=== PATIENT | male | born 1960 | race Caucasian/White ===

== ENCOUNTER 2019-11-19 09:17 | Inpatient (IN) ==
[~2019-11-19 09:17] MED LIST: Vancomycin 1,000 MG, Sodium Chloride IRRigation 1,000 ML IR ONE
[2019-11-19] MEDS ORDERED: Ringers Solution, Lactated 1,000 ML IVC SCH (09:45)
[2019-11-19] MEDS ORDERED: CeFAZolin Syr 2,000MG/20 ML 2,000 MG/20 ML SYRINGE IVPB ONE (10:02)
[2019-11-19] MEDS ORDERED: *HR* Midazolam HCl 2 MG/2 ML VIAL ONE (10:03)
[2019-11-19] MEDS ORDERED: *HR* Propofol 200 MG/20 ML VIAL IVP ONE (10:03)
[2019-11-19] MEDS ORDERED: *HR* FentaNYL (PF) 100 MCG/2 ML VIAL ONE ×3 (10:03→12:54)
[2019-11-19] MEDS ORDERED: Lidocaine -MPF 2% 2 ML VIAL ONE (10:20)
[2019-11-19] MEDS ORDERED: Ondansetron 4 MG/2 ML VIAL ONE (10:20)
[2019-11-19] MEDS ORDERED: *HR* Rocuronium Bromide 50 MG/5 ML VIAL ONE ×2 (10:20→13:19)
[2019-11-19] MEDS ORDERED: *HR* Phenylephrine 10 MG/ML VIAL ONE (10:20)
[2019-11-19] MEDS ORDERED: Lidocaine HCL 4 ML Topical Solution (Laryng-O-Jet Kit Sterile Pak) TP ONE (10:20)
[2019-11-19] MEDS ORDERED: *HR* Heparin 5,000 UNIT/ML VIAL ONE ×2 (10:22→14:34)
[2019-11-19] MEDS ORDERED: Acetaminophen IV 1,000 MG/100 ML INFUS..BTL IVPB ONE (10:26)
[2019-11-19] MEDS ORDERED: Ondansetron 4 MG/2 ML VIAL IVP ONE (10:27)
[2019-11-19] MEDS ORDERED: *HR* OxyCODONE Immed Rel 5 MG TABLET PO PRN ×3 (10:27→17:07)
[2019-11-19] MEDS ORDERED: Aspirin 81 MG TAB.CHEW PO ONE (10:27)
[2019-11-19] MEDS ORDERED: *HR* HYDROmorphone PF 0.5 MG/0.5 ML SYRINGE IVP PRN (10:27)
[2019-11-19] MEDS ORDERED: *HR* Promethazine 25 MG/ML VIAL IVP PRN (10:27)
[2019-11-19] MEDS ORDERED: *HR* Labetalol 20 MG/4 ML SYRINGE IVP PRN ×2 (10:27→17:07)
[2019-11-19] MEDS ORDERED: Heparin 1,000 UNITS/500 mL 500 ML ONE (11:56)
[2019-11-19] MEDS ORDERED: Isovue-300 150 ML INFUS..BTL ONE (11:57)
[2019-11-19] MEDS ORDERED: Dexamethasone 4 MG/ML VIAL ONE (13:51)
[2019-11-19] MEDS ORDERED: 0.9 % Sodium Chloride 1,000 ML IVC SCH (17:07)
[2019-11-19] MEDS ORDERED: Ondansetron 4 MG/2 ML VIAL IVP PRN (17:07)
[2019-11-19] MEDS ORDERED: *HR* HYDROcodone/Acet 5/325 mg TABLET PO PRN ×2 (17:07)
[2019-11-19] MEDS ORDERED: Acetaminophen 325 MG TABLET PO PRN ×2 (17:07)
[2019-11-19] MEDS ORDERED: Naloxone 0.4 MG/ML INJ IVP PRN (17:07)
[2019-11-19] MEDS: *HR* Metoprolol 5 MG/5 ML VIAL IVP SCH ×2 (17:49→17:50)
[2019-11-19] MEDS ORDERED: amLODIPine 5 MG TABLET PO SCH (18:00)
[2019-11-19] MEDS: CeFAZolin 2 GM/120 ML BAG IVPB SCH (18:31)
[2019-11-20] MEDS: CeFAZolin 2 GM/120 ML BAG IVPB SCH (02:21)
[2019-11-20] MEDS: *HR* Metoprolol 5 MG/5 ML VIAL IVP SCH ×2 (05:18→12:31)
[2019-11-20 05:25] LABS: Basophils % 0.1 %; Hematocrit 46.9 % (37.5-50.1); Hemoglobin 15.6 g/dL (12.9-16.9); Immature Granulocytes % 0.4 % (0-4); Lymphocytes # 0.8 K/mcL (0.6-4.6); Lymphocytes % 8.8 %; Mean Corpuscular HGB Conc 33.3 g/dL (31.6-35.5); Mean Corpuscular Hemoglobin 30.6 pg (28.0-33.3); Mean Platelet Volume 10.9 fL (9.4-12.4); Monocytes # 0.5 K/mcL (0.0-1.3); Monocytes % 4.7 %; Neutrophils # 8.3 K/mcL (1.6-8.9); Platelet Count 159 K/mcL (140-400); Red Cell Distribution Width 12.7 % (11.5-14.5); White Blood Count 9.6 K/mcL (4.3-11.1)
[2019-11-20 05:43] LABS: BUN/Creatinine Ratio 14 (6-26); Blood Urea Nitrogen 9 mg/dL (8-23); Calcium 8.8 mg/dL (8.6-10.3); Carbon Dioxide 25 mEq/L (23-29); Chloride 106 mEq/L (98-107); Glucose 131 mg/dL (70-105); Osmolality,Calculated 280 (280-300); Potassium 4.2 mEq/L (3.5-5.1); Sodium 135 mEq/L (136-145); eGFR For African Americans > 60 (> 60); eGFR For Non-African Americans > 60 (> 60)
[2019-11-20] MEDS ORDERED: *HR* Heparin 5,000 UNIT/ML VIAL SQ SCH ×2 (06:00)
[2019-11-20 07:17] VITALS: BP 149/78
[2019-11-20] MEDS ORDERED: lisinopriL 20 MG TABLET PO SCH (09:00)
== END 2019-11-20 12:51 | disposition home or self-care (01) | DRG 169 ==
LOC: SAMDAY 09:17 → 2NNU 12:01
PROVIDERS: ADMIT Surgery; ATTEND Surgery

== ENCOUNTER 2020-01-28 12:59 | Inpatient (IN) ==
[2020-01-28 18:17] LABS: Adenovirus Not Detected (Not Detect); Bordetella Pertussis Not Detected (Not Detect); Chlamydophila pneumoniae Not Detected (Not Detect); Coronavirus 229E Not Detected (Not Detect); Coronavirus HKU1 Not Detected (Not Detect); Coronavirus NL63 Not Detected (Not Detect); Coronavirus OC43 Not Detected (Not Detect); Human Metapneumovirus Not Detected (Not Detect); Human Rhinovirus/Enterovirus Not Detected (Not Detect); Influenza A Subtype 2009 H1 Not Detected (Not Detect); Influenza B Not Detected (Not Detect); Mycoplasma pneumoniae Not Detected (Not Detect); Parainfluenza Virus 1 Not Detected (Not Detect); Parainfluenza Virus 2 Not Detected (Not Detect); Parainfluenza Virus 3 Not Detected (Not Detect); Parainfluenza Virus 4 Not Detected (Not Detect); Respiratory Syncytial Virus Not Detected (Not Detect)
[2020-01-28] MEDS ORDERED: *HR* FentaNYL (PF) 100 MCG/2 ML VIAL ONE (18:56)
[2020-01-28] MEDS ORDERED: *HR* Propofol 200 MG/20 ML VIAL IVP ONE (18:57)
[2020-01-28] MEDS ORDERED: *HR* Midazolam HCl 2 MG/2 ML VIAL ONE (18:57)
[2020-01-28] MEDS ORDERED: Dexamethasone 4 MG/ML VIAL ONE (19:00)
[2020-01-28] MEDS ORDERED: Ondansetron 4 MG/2 ML VIAL ONE (19:00)
[2020-01-28] MEDS ORDERED: Lidocaine -MPF 2% 2 ML VIAL ONE (19:00)
[2020-01-28] MEDS ORDERED: *HR* Succinylcholine 200 MG/10 ML VIAL IVP ONE (19:00)
[2020-01-28] MEDS ORDERED: Ondansetron 4 MG/2 ML VIAL IVP PRN ×2 (19:42→22:41)
[2020-01-28] MEDS ORDERED: Naloxone 0.4 MG/ML INJ IVP PRN ×2 (19:42→22:41)
[2020-01-28] MEDS ORDERED: 0.9 % Sodium Chloride 1,000 ML IVC SCH (20:00)
[2020-01-28] MEDS ORDERED: Bupivacaine/EPI 1:200k 0.25%PF 30 ML VIAL ONE (20:03)
[2020-01-28] MEDS ORDERED: Acetaminophen IV 1,000 MG/100 ML INFUS..BTL ONE (20:06)
[2020-01-28] MEDS ORDERED: Famotidine 20 MG/2 ML VIAL ONE (20:07)
[2020-01-28] MEDS ORDERED: Ketorolac 30 MG/ML VIAL ONE (21:04)
[2020-01-28] MEDS ORDERED: *HR* HYDROMORPHONE 2 MG/ML VIAL ONE (21:19)
[2020-01-28] MEDS ORDERED: Neostigmine Methylsulfate 3 MG/3 ML SYRINGE ONE (21:27)
[2020-01-29] MEDS ORDERED: Piperacillin/Tazobactam 3.375 GM in 0.9 % Sodium Chloride Mini Bag 100 ML IVPB SCH
[2020-01-29] MEDS: *HR* Heparin 5,000 UNIT/ML VIAL SQ SCH ×5 (00:21→21:14)
[2020-01-29] MEDS: 0.9 % Sodium Chloride 1,000 ML IVC SCH ×3 (00:30→17:20)
[2020-01-29] MEDS: Piperacillin/Tazobactam 3.375 GM in 0.9 % Sodium Chloride Mini Bag 100 ML IVPB SCH ×4 (00:30→21:14)
[2020-01-29] MEDS: Acetaminophen IV 1,000 MG/100 ML INFUS..BTL IVPB SCH ×3 (00:31→12:22)
[2020-01-29] MEDS ORDERED: *HR* LORazepam 2 MG/ML VIAL IVP PRN ×3 (01:56)
[2020-01-29] MEDS: Thiamine (B-1) 100 MG, Folic Acid 1 MG, MVI, adult with vitamin K 10 ML in 0.9 % Sodi... IVPB SCH ×2 (03:59→17:19)
[2020-01-29 05:23] LABS: Hematocrit 32.8 % (37.5-50.1); Hemoglobin 10.2 g/dL (12.9-16.9); Immature Granulocytes % 0.3 % (0-4); Lymphocytes % 3.7 %; Mean Corpuscular HGB Conc 31.1 g/dL (31.6-35.5); Mean Corpuscular Volume 106.1 fL (83.0-100.0); Mean Platelet Volume 11.4 fL (9.4-12.4); Monocytes % 3.1 %; Platelet Count 123 K/mcL (140-400); Red Blood Count 3.09 M/mcL (4.19-5.50); Red Cell Distribution Width 13.4 % (11.5-14.5); Segmented Neutrophils % 92.8 %; White Blood Count 12.9 K/mcL (4.3-11.1)
[2020-01-29 05:24] LABS: Basophils % 0.1 %; Lymphocytes # 0.5 K/mcL (0.6-4.6); Monocytes # 0.4 K/mcL (0.0-1.3)
[2020-01-29 05:45] LABS: BUN/Creatinine Ratio 20 (6-26); Blood Urea Nitrogen 19 mg/dL (8-23); Calcium 7.6 mg/dL (8.6-10.3); Carbon Dioxide 15 mEq/L (23-29); Chloride 102 mEq/L (98-107); Glucose 189 mg/dL (70-105); Osmolality,Calculated 273 (280-300); Potassium 4.6 mEq/L (3.5-5.1); Sodium 128 mEq/L (136-145); eGFR For African Americans > 60 (> 60); eGFR For Non-African Americans > 60 (> 60)
[2020-01-29] MEDS ORDERED: lisinopriL 20 MG TABLET PO SCH (09:00)
[2020-01-29] MEDS ORDERED: amLODIPine 5 MG TABLET PO SCH (18:00)
[2020-01-30] MEDS: 0.9 % Sodium Chloride 1,000 ML IVC SCH ×2 (01:35→09:16)
[2020-01-30] MEDS: Piperacillin/Tazobactam 3.375 GM in 0.9 % Sodium Chloride Mini Bag 100 ML IVPB SCH ×3 (05:07→20:35)
[2020-01-30] MEDS: *HR* Heparin 5,000 UNIT/ML VIAL SQ SCH (05:48)
[2020-01-30 06:28] LABS: Basophils % 0.2 %; Hematocrit 20.8 % (37.5-50.1); Immature Granulocytes % 0.4 % (0-4); Lymphocytes # 1.5 K/mcL (0.6-4.6); Lymphocytes % 16.2 %; Mean Corpuscular HGB Conc 31.7 g/dL (31.6-35.5); Mean Corpuscular Hemoglobin 31.4 pg (28.0-33.3); Mean Platelet Volume 11.6 fL (9.4-12.4); Monocytes # 0.8 K/mcL (0.0-1.3); Monocytes % 8.5 %; Neutrophils # 6.8 K/mcL (1.6-8.9); Platelet Count 124 K/mcL (140-400); Red Cell Distribution Width 13.3 % (11.5-14.5); Segmented Neutrophils % 74.7 %; White Blood Count 9.2 K/mcL (4.3-11.1)
[2020-01-30 06:37] LABS: Hemoglobin 6.6 g/dL (12.9-16.9)
[2020-01-30 07:17] LABS: BUN/Creatinine Ratio 19 (6-26); Blood Urea Nitrogen 16 mg/dL (8-23); Calcium 7.9 mg/dL (8.6-10.3); Carbon Dioxide 19 mEq/L (23-29); Chloride 108 mEq/L (98-107); Glucose 104 mg/dL (70-105); Osmolality,Calculated 277 (280-300); Potassium 3.9 mEq/L (3.5-5.1); Sodium 133 mEq/L (136-145); eGFR For African Americans > 60 (> 60); eGFR For Non-African Americans > 60 (> 60)
[2020-01-30] MEDS ORDERED: *HR* LORazepam 2 MG/ML VIAL IVP PRN ×2 (11:11)
[2020-01-30] MEDS: *HR* LORazepam 2 MG/ML VIAL IVP PRN ×2 (11:33→20:51)
[2020-01-30 11:35] LABS: Hematocrit 20.9 % (37.5-50.1); Hemoglobin 6.8 g/dL (12.9-16.9)
[2020-01-30] MEDS ORDERED: 0.9 % Sodium Chloride 250 ML IVC SCH (12:00)
[2020-01-30] MEDS: Thiamine (B-1) 100 MG, Folic Acid 1 MG, MVI, adult with vitamin K 10 ML in 0.9 % Sodi... IVPB SCH (18:14)
[2020-01-30 18:32] LABS: Hematocrit 23.4 % (37.5-50.1); Hemoglobin 7.6 g/dL (12.9-16.9)
[2020-01-31] MEDS: *HR* LORazepam 2 MG/ML VIAL IVP PRN (01:37)
[2020-01-31] MEDS: Piperacillin/Tazobactam 3.375 GM in 0.9 % Sodium Chloride Mini Bag 100 ML IVPB SCH ×3 (03:56→19:41)
[2020-01-31 06:53] LABS: Hematocrit 24.1 % (37.5-50.1); Hemoglobin 7.9 g/dL (12.9-16.9); Mean Corpuscular HGB Conc 32.8 g/dL (31.6-35.5); Mean Corpuscular Hemoglobin 31.9 pg (28.0-33.3); Mean Corpuscular Volume 97.2 fL (83.0-100.0); Mean Platelet Volume 10.6 fL (9.4-12.4); Platelet Count 157 K/mcL (140-400); Red Blood Count 2.48 M/mcL (4.19-5.50)
[2020-01-31 07:09] LABS: BUN/Creatinine Ratio 11 (6-26); Blood Urea Nitrogen 8 mg/dL (8-23); Calcium 8.2 mg/dL (8.6-10.3); Carbon Dioxide 22 mEq/L (23-29); Chloride 106 mEq/L (98-107); Glucose 88 mg/dL (70-105); Osmolality,Calculated 278 (280-300); Potassium 3.7 mEq/L (3.5-5.1); Sodium 135 mEq/L (136-145); eGFR For African Americans > 60 (> 60); eGFR For Non-African Americans > 60 (> 60)
[2020-02-01] MEDS: Piperacillin/Tazobactam 3.375 GM in 0.9 % Sodium Chloride Mini Bag 100 ML IVPB SCH (03:41)
[2020-02-01 04:32] LABS: Hematocrit 25.6 % (37.5-50.1); Hemoglobin 8.3 g/dL (12.9-16.9); Mean Corpuscular HGB Conc 32.4 g/dL (31.6-35.5); Mean Corpuscular Hemoglobin 31.3 pg (28.0-33.3); Mean Corpuscular Volume 96.6 fL (83.0-100.0); Mean Platelet Volume 10.6 fL (9.4-12.4); Platelet Count 196 K/mcL (140-400); Red Blood Count 2.65 M/mcL (4.19-5.50); Red Cell Distribution Width 12.6 % (11.5-14.5)
[2020-02-01 04:49] LABS: BUN/Creatinine Ratio 12 (6-26); Blood Urea Nitrogen 8 mg/dL (8-23); Calcium 8.2 mg/dL (8.6-10.3); Carbon Dioxide 22 mEq/L (23-29); Chloride 104 mEq/L (98-107); Glucose 103 mg/dL (70-105); Osmolality,Calculated 279 (280-300); Potassium 3.6 mEq/L (3.5-5.1); Sodium 135 mEq/L (136-145); eGFR For African Americans > 60 (> 60); eGFR For Non-African Americans > 60 (> 60)
[2020-02-01 06:42] VITALS: BP 114/66
== END 2020-02-01 11:43 | disposition home or self-care (01) | DRG 234 ==
LOC: CDU → SUATTDRO 16:20 → 3ANU 18:29
PROVIDERS: ADMIT Student in an Organized Health Care Education/Training Program; ATTEND Internal Medicine